=== PATIENT | female | born 1995 | race Caucasian/White ===

== ENCOUNTER → 2017-01-08 | Outpatient (CLI) | payer BC | LOC: MRI 07:57 | DX: C71.9 Malignant neoplasm of brain, unspecified (principal) ==

== ENCOUNTER → 2020-01-19 | Outpatient (CLI) | payer BC | LOC: LAB 07:52 | PROVIDERS: ATTEND Nurse Practitioner | DX: U07.1 COVID-19 (principal); R50.9 Fever, unspecified; R05 Cough ==